=== PATIENT | male | born 1950 | race Asian ===

== ENCOUNTER 2018-04-13 07:03 | Day surgery (SDC) | payer OTHER ==
[2018-04-12 12:15] VITALS: BMI 21.5
[2018-04-13 08:39] VITALS: TEMP 97.6
[2018-04-13 09:36] VITALS: BP 115/82; PULSE 72
--- NOTE | 2018-04-16 17:52 | PATH ---
Surgical Pathology Report Patient Name: THEA ERNANDEZ [facility]. Rec. #: [id number] /Age/Gender: 1950 (Age: 67) / M Account: [id number] Location: U-ENDOSCOPY Taken: 04/13/2018 Received: 04/13/2018 Reported: 04/16/2018 Physicians: Margarita Zheng M.D. Specimen(s) Received A: BX 2ND PORTION DUODENUM AND BULB B: BX ANTRUM AND BODY C: POLYP SIGMOID Clinical History Surveillance adenoma Postoperative diagnosis: Gastritis, colon polyp Final Diagnosis A. 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 B. 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 IMMUNOHISTOCHEMICAL STAIN FOR H. PYLORI IS NEGATIVE. C. SIGMOID COLON, POLYP, BIOPSY: HYPERPLASTIC POLYP. Electronically Signed Nikky Mercado M.D. Gross Description A. Received in formalin, labeled "biopsy second portion of duodenum and bulb" are 3 linares, irregular portions of soft tissue ranging from 0.3-0.4 cm. in greatest dimension. The specimens are submitted in toto in one cassette. B. Received in formalin, labeled "biopsy antrum and body" are 6 linares, irregular portions of soft tissue ranging from 0.3-0.6 cm. in greatest dimension. The specimens are submitted in toto in one cassette. C. Received in formalin, labeled "biopsy polyp sigmoid colon" is a linares, irregular portion of soft tissue measuring 0.5 cm. in greatest dimension. The specimen is submitted in toto in one cassette. 04/13/201804/13/2018
== END 2018-04-13 09:36 | disposition home or self-care (01) ==
LOC: JASU-ENDO 07:03
PROVIDERS: ATTEND Internal Medicine Gastroenterology
PROC: 0DB98ZX Excision of Duodenum, Via Natural or Artificial Opening Endoscopic, Diagnostic (ICD-10-PCS; 2018-04-13)
PROC: 0DB68ZX Excision of Stomach, Via Natural or Artificial Opening Endoscopic, Diagnostic (ICD-10-PCS; 2018-04-13)
PROC: 0DBN8ZX Excision of Sigmoid Colon, Via Natural or Artificial Opening Endoscopic, Diagnostic (ICD-10-PCS; principal; 2018-04-13 08:00)
DX: Z86.010 Personal history of colon polyps (principal); K63.5 Polyp of colon; Z12.0 Encounter for screening for malignant neoplasm of stomach; K29.80 Duodenitis without bleeding; K29.50 Unspecified chronic gastritis without bleeding; K31.89 Other diseases of stomach and duodenum; K64.8 Other hemorrhoids
CPT/HCPCS: 88305-TC; 88342-TC

== ENCOUNTER 2021-12-17 04:13 | Day surgery (SDC) | payer OTHER ==
[2021-12-14 14:38] VITALS: BMI 22.0
[2021-12-17] MEDS ORDERED: MIDAZOLAM HCL 2 MG/2 ML SINGLE DOSE VIAL ONE (10:56)
[2021-12-17] MEDS ORDERED: LIDOCAINE HCL 2% 100 MG/5 ML DISP.SYRIN ONE (10:56)
[2021-12-17] MEDS ORDERED: PROPOFOL 20 ML ONE (10:56)
[2021-12-17] MEDS ORDERED: ceFAZolin SODIUM 1 GM VIAL IVPB ONE (11:30)
[2021-12-17] MEDS ORDERED: ceFAZolin SODIUM 1 GM VIAL ONE (11:34)
[2021-12-17] MEDS ORDERED: DEXAMETHASONE SOD PHOSPHATE 4 MG/1 ML VIAL ONE (11:41)
[2021-12-17] MEDS ORDERED: KETOROLAC TROMETHAMINE 30 MG/1 ML VIAL ONE (11:41)
[2021-12-17] MEDS ORDERED: PROMETHAZINE HCL 25 MG/1 ML VIAL IVPUSH PRN (12:32)
[2021-12-17] MEDS ORDERED: oxyCODONE HCL 5 MG TABLET PO PRN ×2 (12:32)
[2021-12-17] MEDS ORDERED: ONDANSETRON 4 MG/2 ML VIAL IVPUSH PRN (12:32)
[2021-12-17] MEDS ORDERED: LACTATED RINGERS SOLUTION 1,000 ML IV SCH (12:45)
[2021-12-17 15:33] VITALS: BP 147/93; PULSE 70; TEMP 97.7
== END 2021-12-17 15:45 | disposition home or self-care (01) ==
LOC: JASU-SURG 04:13
PROVIDERS: ATTEND Urology
PROC: 0V508ZZ Destruction of Prostate, Via Natural or Artificial Opening Endoscopic (ICD-10-PCS; principal; 2021-12-17 11:00)
DX: N40.1 Benign prostatic hyperplasia with lower urinary tract symptoms (principal); N13.8 Other obstructive and reflux uropathy; R33.8 Other retention of urine
CPT/HCPCS: 94760